=== PATIENT | male | born 1985 | race Caucasian/White ===

== ENCOUNTER 2017-04-04 17:23 | Emergency (ER) | payer SELFPAY ==
[~2017-04-04] VITALS: Ht 180.3 cm; Wt 100.0 kg
[2017-04-04] MEDS ORDERED: MORPHINE SULFATE 10 MG/ML CPJ IM ONE (20:30)
[2017-04-04] MEDS ORDERED: HYDROCODONE/ACETAMINOPHEN 5/325MG TABLET PO ONE (20:30)
[2017-04-04] MEDS ORDERED: KETOROLAC 60MG/2ML VIAL IM ONE (20:30)
[2017-04-04 22:50] VITALS: BP 140/70
== END 2017-04-04 22:50 | disposition home or self-care (01) ==
LOC: ER 17:59
DX: S92.424A Nondisplaced fracture of distal phalanx of right great toe, initial encounter for closed fracture (principal); W22.8XXA Striking against or struck by other objects, initial encounter; Y93.89 Activity, other specified; Y92.018 Other place in single-family (private) house as the place of occurrence of the external cause
CPT/HCPCS: 29515; 73630; 96372; 99284; J1885; J2270; Z7610